=== PATIENT | female | born 1980 | race Caucasian/White ===

== ENCOUNTER 2020-10-15 20:09 | Emergency (ER) | payer SELFPAY ==
[~2020-10-15] VITALS: Ht 157.5 cm; Wt 50.9 kg
--- NOTE | 2020-10-15 22:05 | RAD ---
EXAM: Right lower extremity venous Doppler. HISTORY: Right lower extremity pain/swelling. COMPARISON: None. FINDINGS: Grayscale and Doppler analysis of the right lower extremity deep venous systems was perform ed with graded compression and augmentation. The common femoral, greater saphenous, superficial femor al, popliteal and calf veins were assessed. There is no evidence of deep venous thrombosis. IMPRESSION: 1. No evidence of deep venous thrombosis in the right lower extremity. Electronically signed by: Too Haney MD (10/15/2020 10:02 PM) [facility] [place]
--- NOTE | 2020-10-15 22:26 | PHYS DOC ---
Past Medical History Past Medical History: No Pertinent History Past Surgical History: Cholecystectomy, Hysterectomy, Tubal ligation, Other Additional Past Surgical Histo: R) ovary and tube removed, Uterine ablation. Smoking Status: Current Every Day Smoker Alcohol Use: Rarely Drug Use: None General Adult EDM: Chief Complaint: LOWER EXT PAIN HPI: HPI: Patient is a 40 year old female presents for leg pain. She states that she had bilateral leg pain after her gallbladder surgery on at [facility]. She states that on Saturday the leg pain in her left leg significantly decreased and but pain in her right leg significantly increased. She states that the pain feels like a pulled muscle in her calf. She states that this pain does not radiate anywhere. She states that this pain makes it hard to walk. She has tried Percocet, rubbing her muscles, and ice with no relief. She states she has not on any hormone replacement therapy, has not been immobile for a long period of time, has no history of DVT, and no family history. She denies any numbness and tingling in her extremities. She states she has never had any pain in her extremities like this before. History obtained from the patient. Patient ambulated into the ER with a steady gait. Review of Systems: Review of Systems: Constitutional: Denies fever or chills. [] Eyes: Denies change in visual acuity. [] HENT: Denies nasal congestion or sore throat. [] Respiratory: Denies cough or shortness of breath. [] Cardiovascular: Denies chest pain or edema. [] GI: Denies abdominal pain, nausea, vomiting, bloody stools or diarrhea. [] : Denies dysuria. [] Musculoskeletal: Denies back pain or joint pain. [positive leg pain] Integument: Denies rash. [] Neurologic: Denies headache, focal weakness or sensory changes. [] Endocrine: Denies polyuria or polydipsia. [] Lymphatic: Denies swollen glands. [] Psychiatric: Denies depression or anxiety. [] Heart Score: Risk Factors: Risk Factors: DM, Current or recent (<one month) smoker, HTN, HLP, family history of CAD, obesity. Risk Scores: Score 0 - 3: 2.5% MACE over next 6 weeks - Discharge Home Score 4 - 6: 20.3% MACE over next 6 weeks - Admit for Clinical Observation Score 7 - 10: 72.7% MACE over next 6 weeks - Early Invasive Strategies Allergies: Allergies: Allergies Coded Allergies Type Severity Reaction Last Updated Verified No Known Drug Allergies 01/25/16 No Physical Exam: PE: General: alert, no acute distress. Skin: warm, dry and intact. Head:: Normocephalic, atraumatic. Neck: Trachea midline. Eyes: EOMI, Normal conjunctiva, No drainage CARDIOVASCULAR: Regular rate and rhythm RESPIRATORY: No respiratory distress Back: Full range of motion. MUSCULOSKELETAL: Full range of motion of bilateral upper and lower extremities. No lower extremity edema lower extremity calf compartments soft patient GASTROINTESTINAL: Abdomen soft without rebound or guarding. NEUROLOGICAL: Alert and noted to person, place and time. No neurological deficits observed Psychiatric: Cooperative. Normal judgment Current Patient Data: Vital Signs: Vital Signs Date Time Temp Pulse Resp B/P (MAP) Pulse Ox O2 Delivery O2 Flow Rate FiO2 10/15/20 20:26 98.2 84 16 113/80 (91) 97 Room Air 98.2 EKG: EKG: [] Radiology/Procedures: Radiology/Procedures: [] Impression: Bilateral venous ultrasound negative for DVTs. Course & Med Decision Making: Course & Med Decision Making Pertinent Labs and Imaging studies reviewed. (See chart for details) [] Patient was evaluated for chief complaint. Work up consisted of radiologic imaging. Ultrasound performed negative for DVT. Discussed lab work to check for electrolyte imbalance dehydration patient states during her hospital stay Saturday through she received IV fluid treatment. Patient states today was the first day she was able full regular diet-- cheese burger and tator tots. Patient without neurological visit of lower extremity. Change patient pain medicine hydrocodone and will add Flexeril. Patient discharged home with instructions to follow-up with her primary care physician. Karma Disclaimer: Karma Disclaimer: This electronic medical record was generated, in whole or in part, using a voice recognition dictation system. Departure Departure Impression: Primary Impression: Leg pain Disposition: 01 DC HOME SELF CARE/HOMELESS Condition: STABLE Referrals: JENNIFER MISTRY APRN (PCP) Patient Instructions: Musculoskeletal Pain Additional Instructions: Musculoskeletal leg pain Scripts Cyclobenzaprine Hcl (CYCLOBENZAPRINE HCL) 10 Mg Tablet 1 TAB PO TID, #20 TAB Prov: GERI NUNO I DO 2/27/21 Hydrocodone/Acetaminophen (Hydrocodone-Acetamin 5-325 mg) 1 Each Tablet 1 EACH PO Q4-6HRS, #20 TAB Prov: GERI NUNO DO 10/15/20 GERI NUNO DO Oct 15, 2020 22:26
--- NOTE | 2020-10-15 22:40 | RAD ---
Exam: Left lower extremity venous duplex study INDICATION: Leg swelling TECHNIQUE: Using a combination of real-time ultrasound imaging and color-flow and pulse Doppler imagi ng techniques along with graded compression and augmentation, duplex evaluation of the deep venous sy stems of leftlower extremity was performed. Multiple images were obtained. Findings: There is no sonographic evidence for deep venous thrombosis involving the visualized deep venous stru ctures of the left lower extremity. IMPRESSION: No acute DVT in the left lower extremities. Electronically signed by: Akil Garcia MD (10/15/2020 10:38 PM) [facility]
[2020-10-15 22:50] VITALS: BP 120/85
[2020-10-15] MEDS ORDERED: MORPHINE SULFATE 4 MG/ML VIAL. IM ONE (23:00)
[2020-10-15] MEDS ORDERED: HYDR-2759 PO (23:02)
[2020-10-15] MEDS ORDERED: CYCL10TA2 PO (23:02)
== END 2020-10-15 23:08 | disposition home or self-care (01) ==
LOC: ER 20:09
DX: M79.605 Pain in left leg (principal); M79.604 Pain in right leg; F17.200 Nicotine dependence, unspecified, uncomplicated; Z90.49 Acquired absence of other specified parts of digestive tract; Z90.710 Acquired absence of both cervix and uterus; Z98.51 Tubal ligation status
CPT/HCPCS: 93971; 96372; 99285; J2270